=== PATIENT | female | born 1980 | race Two or more races ===

== ENCOUNTER 2020-08-18 16:26 | Emergency (ER) | payer BC, OTHER ==
[~2020-08-18] VITALS: Ht 154.9 cm; Wt 94.3 kg
--- NOTE | 2020-08-18 17:44 | NUR ---
[employer]SIST[employer]: PT TO ROOM FROM [facility]
--- NOTE | 2020-08-18 18:01 | NUR ---
PT REPORTS HAVING CP SINCE 01/14 THAT HAS TURNED INTO ABD PAIN. PT ALSO REPORTS BEING NAUSEOUS AND DIZZY TODAY.
[2020-08-18] MEDS ORDERED: ONDANSETRON ODT 4 MG PO ONE (18:30)
[2020-08-18] MEDS ORDERED: FAMOTIDINE 20 MG TABLET PO ONE (18:30)
[2020-08-18] MEDS ORDERED: MECLIZINE CHEWABLE 25 MG TAB PO ONE (18:30)
[2020-08-18] MEDS ORDERED: MAALOX/HYOSCYAMINE/LIDOCAINE 45 ML BTL PO ONE (18:30)
[2020-08-18] MEDS ORDERED: CARBAMIDE PEROXIDE EAR DROPS 6.5%, 15ML LEFT EAR ONE (18:30)
[2020-08-18] MEDS ORDERED: FAMOTIDINE 20 MG TABLET ONE (18:38)
[2020-08-18] MEDS ORDERED: MECLIZINE CHEWABLE 25 MG TAB ONE (18:38)
[2020-08-18] MEDS ORDERED: MAALOX/HYOSCYAMINE/LIDOCAINE 45 ML BTL ONE (18:38)
[2020-08-18] MEDS ORDERED: CARBAMIDE PEROXIDE EAR DROPS 6.5%, 15ML ONE (18:38)
[2020-08-18] MEDS ORDERED: ONDANSETRON ODT 4 MG ONE (18:38)
[2020-08-18 18:45] LABS: BASOPHILS % (AUTO) 1 % (0-1); EOSINOPHILS % (AUTO) 1 % (1-7); LYMPHOCYTES % (AUTO) 34 % (22-44); MEAN CORPUSCULAR HGB CONC 32.3 g/dL (32.4-35.8); MEAN PLATELET VOLUME 8.8 fL (7.4-10.4); MONOCYTES % (AUTO) 6 % (2-9); NEUTROPHILS % (AUTO) 58 % (42-75); PLATELET COUNT 363 x10^3/uL (130-400); RED BLOOD COUNT 4.85 x10^6/uL (3.82-5.3); RED CELL DISTRIBUTION WIDTH 15.8 % (9.6-15.2)
[2020-08-18 18:46] LABS: MD NO
[2020-08-18 18:58] LABS: ALBUMIN 3.5 g/dL (3.4-5.0); ANION GAP 7 mmol/L (5-15); CALCIUM 9.1 mg/dL (8.5-10.1); CHLORIDE 110 mmol/L (98-107); CREATININE 0.76 mg/dL (0.55-1.02)
[2020-08-18 19:02] LABS: ALKALINE PHOSPHATASE 91 U/L (45-117); BILIRUBIN,TOTAL 0.2 mg/dL (0.2-1.0); TOTAL PROTEIN 7.5 g/dL (6.4-8.2)
[2020-08-18 19:03] LABS: ALANINE AMINOTRANSFERASE 38 U/L (12-78)
--- NOTE | 2020-08-18 19:05 | NUR ---
PT RESTING IN DR. YU RASMUSSEN AT BEDSIDE
[2020-08-18 20:30] LABS: MICROSCOPIC NOT IND
[2020-08-18 20:46] VITALS: BP 127/81
== END 2020-08-18 20:53 | disposition home or self-care (01) ==
LOC: ED 19:25
DX: G89.29 Other chronic pain (principal); R10.13 Epigastric pain; R42 Dizziness and giddiness; I51.7 Cardiomegaly; R94.31 Abnormal electrocardiogram [ECG] [EKG]; G43.909 Migraine, unspecified, not intractable, without status migrainosus
CPT/HCPCS: 36415; 69209; 80053; 81003; 83690; 84703; 85025; 93005; 99284; Q0162

== ENCOUNTER → 2020-08-29 | Outpatient (CLI) | payer OTHER ==
[~2020-08-29] MED LIST: OMNIPAQUE 350 MG/ML, 100ML BOTTLE ONE
== END | disposition home or self-care (01) ==
LOC: CFH 12:19
PROVIDERS: ATTEND Internal Medicine Gastroenterology
DX: N28.1 Cyst of kidney, acquired (principal); R07.9 Chest pain, unspecified; R11.2 Nausea with vomiting, unspecified; R74.01 Elevation of levels of liver transaminase levels; Z90.49 Acquired absence of other specified parts of digestive tract
CPT/HCPCS: 71260; 74177; Q9967

== ENCOUNTER 2020-10-09 14:46 | Inpatient (IN) | payer OTHER ==
[~2020-10-09] VITALS: Ht 157.5 cm; Wt 94.6 kg
[2020-10-09] MEDS ORDERED: AZIT250T89 PO (15:08)
[2020-10-09] MEDS ORDERED: PRED20TA PO (15:08)
[2020-10-09] MEDS ORDERED: OMEP20CA20 PO (15:08)
--- NOTE | 2020-10-09 15:12 | NUR ---
A&OX4, RESP LABORED, SOB, INTERMITTENT COUGH, LOW GRADE FEVER, N/V, DIARRHEA. SENSE OF SMELL & TASTE INTACT. TOOK LAST DOSE OF Z-YOCASTA TODAY, TAKING PREDNISONE. NO ANTIPYRETIC TAKEN TODAY. SPEECH CLEAR, SKIN WNL. COVID + OF 09/28, SX STARTED 09/19/20.
--- NOTE | 2020-10-09 15:48 | NUR ---
O2 2LNC APPLIED FOR 88% RA SATURATION
[2020-10-09 16:06] LABS: BASOPHILS % (AUTO) 0 % (0-1); EOSINOPHILS % (AUTO) 0 % (1-7); LYMPHOCYTES % (AUTO) 8 % (22-44); MD NO; MEAN CORPUSCULAR HEMOGLOBIN 26.1 pg (27.0-34.8); MEAN CORPUSCULAR HGB CONC 32.7 g/dL (32.4-35.8); MEAN PLATELET VOLUME 8.6 fL (7.4-10.4); MONOCYTES % (AUTO) 5 % (2-9); NEUTROPHILS % (AUTO) 86 % (42-75); PLATELET COUNT 376 x10^3/uL (130-400); RED BLOOD COUNT 4.96 x10^6/uL (3.82-5.3); RED CELL DISTRIBUTION WIDTH 17.2 % (9.6-15.2)
[2020-10-09 16:16] LABS: ALANINE AMINOTRANSFERASE 34 U/L (12-78); ALBUMIN 3.1 g/dL (3.4-5.0); ANION GAP 6 mmol/L (5-15); CALCIUM 8.8 mg/dL (8.5-10.1); CHLORIDE 109 mmol/L (98-107); CREATININE 0.57 mg/dL (0.55-1.02)
[2020-10-09 16:20] LABS: ALKALINE PHOSPHATASE 63 U/L (45-117); BILIRUBIN,TOTAL 0.3 mg/dL (0.2-1.0); TOTAL PROTEIN 8.1 g/dL (6.4-8.2)
--- NOTE | 2020-10-09 16:20 | NUR ---
DR AUSTIN AT BS.
--- NOTE | 2020-10-09 16:48 | NUR ---
UNABLE TO WALK 20 FT W/OUT COUGHING AND ASSISTANCE.
--- NOTE | 2020-10-09 16:55 | NUR ---
PT REPORT TO KECIA PARDO RN. PT CARE TRANSFERRED.
[2020-10-09] MEDS ORDERED: CEFTRIAXONE PMX 1GM/50ML 50 ML ONE (16:58)
[2020-10-09] MEDS ORDERED: DOXYCYCLINE 100 MG in DEXTROSE 5% 250 ML IV SCH (17:00)
[2020-10-09] MEDS ORDERED: CEFTRIAXONE PMX 1GM/50ML 50 ML IVPB ONE (17:00)
--- NOTE | 2020-10-09 17:05 | NUR ---
TASK RN: PT RESTING IN SHARRI RASMUSSEN NOTED AT THIS TIME, VSS. PER PT NO NEEDS AT THIS TIME.
[2020-10-09] MEDS ORDERED: ACETAMINOPHEN 325 MG TABLET PO PRN (17:30)
[2020-10-09] MEDS ORDERED: DOCUSATE 100 MG CAPSULE PO PRN (17:30)
[2020-10-09] MEDS ORDERED: MELATONIN 5 MG TABLET PO PRN (17:30)
[2020-10-09] MEDS ORDERED: hydrALAzine 20 MG/ML, 1ML IVPush PRN (17:30)
[2020-10-09] MEDS ORDERED: ONDANSETRON 2MG/ML, 2ML IVPush PRN (17:30)
[2020-10-09] MEDS ORDERED: KETOROLAC 30 MG/1 ML IV PRN (17:30)
--- NOTE | 2020-10-09 17:37 | NUR ---
PT REPORT FROM BREAK RN. PT CARE TO BE RESUMED.
--- NOTE | 2020-10-09 17:40 | NUR ---
DINNER TRAY ORDERED. MESSAGE LEFT ON DIETARY VOICE MAIL, ALSO.
[2020-10-09] MEDS ORDERED: ASCORBIC ACID 500 MG TABLET ONE (17:49)
[2020-10-09] MEDS ORDERED: ENOXAPARIN 40 MG/0.4 ML ONE (17:49)
[2020-10-09] MEDS: ASCORBIC ACID 500 MG TABLET PO SCH (17:57)
[2020-10-09] MEDS: ENOXAPARIN 40 MG/0.4 ML SQ SCH (17:59)
--- NOTE | 2020-10-09 17:59 | NUR ---
VIT C AND LOVENOX GIVEN PER EMAR. CEFTRIAXONE INFUSED.
[2020-10-09 18:00] LABS: D-DIMER (DIC) 0.39 ug/mlFEU (0.00-0.52); PROTIME 10.7 Seconds (9.6-11.5)
--- NOTE | 2020-10-09 18:43 | NUR ---
VIBRAMYCIN HUNG, INFUSING AT 250ML/HR VIA PUMP. IV SITE PATENT.
--- NOTE | 2020-10-09 18:48 | NUR ---
DINNER TRAY DELIVERED.
--- NOTE | 2020-10-09 19:56 | NUR ---
COMMODE CHAIR TO ROOM. PT RESTING QUIETLY ON GURNEY, WATCHING TV. VIBRAMYCIN INFUSED.
--- NOTE | 2020-10-09 20:23 | NUR ---
HOSPITAL BED ORDERED
--- NOTE | 2020-10-09 21:18 | NUR ---
HOSPITAL BED DELIVERED TO PT. CALL LIGHT W/IN REACH. O2 AT 2LNC REAPPLIED.
--- NOTE | 2020-10-09 21:55 | NUR ---
PT REPORT TO ZENIA BETTS. PT CARE TRANSFERRED.
--- NOTE | 2020-10-09 21:56 | NUR ---
PT RESTING IN BED, RESPIRATIONS EVEN, NADN. LIGHTS OFF TO PROMOTE REST, CALL LIGHT IN REACH.
[2020-10-10 01:14] VITALS: BP 124/81
[2020-10-10 08:04] LABS: BASOPHILS % (AUTO) 0 % (0-1); EOSINOPHILS % (AUTO) 1 % (1-7); LYMPHOCYTES % (AUTO) 34 % (22-44); MEAN CORPUSCULAR HEMOGLOBIN 26.6 pg (27.0-34.8); MEAN CORPUSCULAR HGB CONC 33.3 g/dL (32.4-35.8); MEAN PLATELET VOLUME 8.2 fL (7.4-10.4); MONOCYTES % (AUTO) 10 % (2-9); NEUTROPHILS % (AUTO) 55 % (42-75); PLATELET COUNT 396 x10^3/uL (130-400); RED BLOOD COUNT 4.68 x10^6/uL (3.82-5.3); RED CELL DISTRIBUTION WIDTH 17.5 % (9.6-15.2)
[2020-10-10 08:08] LABS: MD NO
[2020-10-10 08:11] LABS: ALBUMIN 2.9 g/dL (3.4-5.0); CHLORIDE 108 mmol/L (98-107)
[2020-10-10 08:25] LABS: ALANINE AMINOTRANSFERASE 32 U/L (12-78); ALKALINE PHOSPHATASE 56 U/L (45-117); ANION GAP 7 mmol/L (5-15); BILIRUBIN,TOTAL 0.3 mg/dL (0.2-1.0); CALCIUM 9.2 mg/dL (8.5-10.1); CREATININE 0.61 mg/dL (0.55-1.02); TOTAL PROTEIN 7.7 g/dL (6.4-8.2)
[2020-10-10 09:10] VITALS: BP 101/68
[2020-10-10] MEDS: DEXAMETHASONE 4 MG/ML, 1ML IVPush SCH (09:22)
[2020-10-10] MEDS: AZITHROMYCIN 500 MG in SODIUM CHLORIDE 0.9% 250 ML IV SCH (09:22)
[2020-10-10] MEDS: FAMOTIDINE 20 MG TABLET PO SCH (09:22)
[2020-10-10] MEDS: CHOLECALCIFEROL 5,000u TAB PO SCH (09:22)
[2020-10-10] MEDS: THIAMINE 100MG TABLET PO SCH (09:22)
[2020-10-10] MEDS: ZINC SULFATE 220 MG CAPSULE PO SCH (09:22)
[2020-10-10] MEDS: ASCORBIC ACID 500 MG TABLET PO SCH ×2 (09:22→16:33)
[2020-10-10] MEDS ORDERED: POTASSIUM CHLORIDE 40 MEQ in SODIUM CHLORIDE 0.9% 500 ML IV ONE (13:00)
[2020-10-10] MEDS ORDERED: ACETAMINOPHEN 325 MG TABLET PO PRN (13:00)
[2020-10-10] MEDS ORDERED: POTASSIUM CHLORIDE 20 MEQ TAB.ER.PRT PO ONE (13:00)
[2020-10-10 14:12] VITALS: BP 106/71
[2020-10-10] MEDS: CEFTRIAXONE PMX 1GM/50ML 50 ML IV SCH (16:33)
[2020-10-10] MEDS: ENOXAPARIN 40 MG/0.4 ML SQ SCH (16:34)
[2020-10-10 19:41] VITALS: BP 105/70
[2020-10-11 02:47] VITALS: BP 104/72
[2020-10-11 06:58] VITALS: BP 108/73
[2020-10-11 08:37] LABS: ANION GAP 5 mmol/L (5-15); CALCIUM 8.7 mg/dL (8.5-10.1); CHLORIDE 114 mmol/L (98-107); CREATININE 0.49 mg/dL (0.55-1.02)
[2020-10-11] MEDS: DEXAMETHASONE 4 MG/ML, 1ML IVPush SCH (08:55)
[2020-10-11] MEDS: ASCORBIC ACID 500 MG TABLET PO SCH ×2 (08:55→16:27)
[2020-10-11] MEDS: THIAMINE 100MG TABLET PO SCH (08:55)
[2020-10-11] MEDS: FAMOTIDINE 20 MG TABLET PO SCH ×2 (08:55→20:26)
[2020-10-11] MEDS: CHOLECALCIFEROL 5,000u TAB PO SCH (08:55)
[2020-10-11] MEDS: ZINC SULFATE 220 MG CAPSULE PO SCH (08:55)
[2020-10-11] MEDS: AZITHROMYCIN 500 MG in SODIUM CHLORIDE 0.9% 250 ML IV SCH (08:56)
[2020-10-11 12:22] VITALS: BP 111/72
[2020-10-11] MEDS: ENOXAPARIN 40 MG/0.4 ML SQ SCH (16:27)
[2020-10-11] MEDS: CEFTRIAXONE PMX 1GM/50ML 50 ML IV SCH (16:57)
[2020-10-11 21:17] VITALS: BP 117/69
[2020-10-12 01:06] VITALS: BP 110/74
[2020-10-12 07:02] VITALS: BP 111/74
[2020-10-12] MEDS: ASCORBIC ACID 500 MG TABLET PO SCH (08:41)
[2020-10-12] MEDS: AZITHROMYCIN 500 MG in SODIUM CHLORIDE 0.9% 250 ML IV SCH (08:41)
[2020-10-12] MEDS: DEXAMETHASONE 4 MG/ML, 1ML IVPush SCH (08:41)
[2020-10-12] MEDS: THIAMINE 100MG TABLET PO SCH (08:41)
[2020-10-12] MEDS: ZINC SULFATE 220 MG CAPSULE PO SCH (08:41)
[2020-10-12] MEDS: FAMOTIDINE 20 MG TABLET PO SCH (08:41)
[2020-10-12] MEDS: CHOLECALCIFEROL 5,000u TAB PO SCH (08:41)
[2020-10-12] MEDS ORDERED: CHOL500045 PO (11:08)
[2020-10-12] MEDS ORDERED: ZINC220C7 PO (11:08)
[2020-10-12] MEDS ORDERED: CEFD300C37 PO (11:08)
[2020-10-12] MEDS ORDERED: ASCO500T9 PO (11:08)
[2020-10-12] MEDS ORDERED: THIA100T67 PO (11:08)
[2020-10-12 12:50] VITALS: BP 127/81
== END 2020-10-12 14:11 | disposition home or self-care (01) | DRG 177 ==
LOC: ED 15:06 → SUATTDRO 16:55 → EDIP 17:54 → 3N 10-10 00:36
PROVIDERS: ADMIT Internal Medicine; ATTEND Family Medicine
DX: U07.1 COVID-19 (principal); J12.89 Other viral pneumonia; J15.9 Unspecified bacterial pneumonia; J96.01 Acute respiratory failure with hypoxia; E87.6 Hypokalemia; Z68.38 Body mass index [BMI] 38.0-38.9, adult
CPT/HCPCS: 36415; 71045; 80048; 80053; 82728; 83605; 83615; 84145; 84703; 85025; 85049; 85379; 85384; 85610; 85730; 86140; 87040; 93005; G0378; J0456; J0696; J1100; J1650; J3480; J7060; J7040; J7050

== ENCOUNTER 2020-11-01 14:21 | Emergency (ER) | payer OTHER ==
[~2020-11-01] VITALS: Ht 157.5 cm; Wt 95.3 kg
[~2020-11-01 14:21] MED LIST changes: +ASCO500T9 PO; +AZIT250T89 PO; +CEFD300C37 PO; +CHOL500045 PO; +OMEP20CA20 PO; -OMNIPAQUE 350 MG/ML, 100ML BOTTLE ONE; +PRED20TA PO; +THIA100T67 PO; +ZINC220C7 PO
[2020-11-01] MEDS ORDERED: LORazepam 2 MG/ML, 1ML IVPush ONE (15:00)
[2020-11-01] MEDS ORDERED: SODIUM CHLORIDE FLUSH 10ML SYR IVF ONE (15:00)
[2020-11-01] MEDS ORDERED: ASPIRIN 81 MG TABLET CHEW PO ONE (15:00)
[2020-11-01 15:22] LABS: BASOPHILS % (AUTO) 1 % (0-1); EOSINOPHILS % (AUTO) 1 % (1-7); LYMPHOCYTES % (AUTO) 22 % (22-44); MEAN CORPUSCULAR HEMOGLOBIN 27.5 pg (27.0-34.8); MEAN PLATELET VOLUME 8.4 fL (7.4-10.4); MONOCYTES % (AUTO) 7 % (2-9); NEUTROPHILS % (AUTO) 70 % (42-75); PLATELET COUNT 252 x10^3/uL (130-400); RED BLOOD COUNT 4.48 x10^6/uL (3.82-5.3); RED CELL DISTRIBUTION WIDTH 18.2 % (9.6-15.2)
[2020-11-01 15:26] LABS: MD NO
[2020-11-01 15:27] LABS: ALANINE AMINOTRANSFERASE 32 U/L (12-78); ALBUMIN 3.3 g/dL (3.4-5.0); ANION GAP 4 mmol/L (5-15); CALCIUM 8.8 mg/dL (8.5-10.1); CHLORIDE 111 mmol/L (98-107); CREATININE 0.64 mg/dL (0.55-1.02)
[2020-11-01 15:32] LABS: ALKALINE PHOSPHATASE 99 U/L (45-117); BILIRUBIN,TOTAL 0.2 mg/dL (0.2-1.0); TOTAL PROTEIN 7.1 g/dL (6.4-8.2); TROPONIN I < 0.015 ng/mL (0.000-0.045)
[2020-11-01] MEDS ORDERED: ASPIRIN 81 MG TABLET CHEW ONE (15:51)
[2020-11-01] MEDS ORDERED: LORazepam 2 MG/ML, 1ML ONE (15:52)
[2020-11-01 16:35] VITALS: BP 132/74
== END 2020-11-01 16:36 | disposition home or self-care (01) ==
LOC: ED 16:20
DX: U07.1 COVID-19 (principal); R06.9 Unspecified abnormalities of breathing; R07.89 Other chest pain; F41.1 Generalized anxiety disorder; G43.909 Migraine, unspecified, not intractable, without status migrainosus
CPT/HCPCS: 36415; 71045; 80053; 83605; 83880; 84484; 85025; 93005; 96374; 99285; J2060